=== PATIENT | female | born 1980 | race Caucasian/White ===

== ENCOUNTER → 2016-08-29 | Outpatient (CLI) | payer OTHER ==
[~2016-08-29] MED LIST: CYAN10005 PO; FERR1TAB61; MELATAB2 PO; MRC50 PO; MULT-506 PO; PARO1TAB27 PO; PNT500 PO; PRT/20 PO; RANI150T3 PO
[2016-08-29 08:50] LABS: HEMATOCRIT 40.7 % (37-47); MEAN CORPUSCULAR HEMOGLOBIN 35.6 pg (25-34); MEAN CORPUSCULAR HGB CONC 34.9 g/dl (32-36); MEAN PLATELET VOLUME 10.2 fL (7.4-10.4); PLATELET COUNT 282 K/uL (130-400); RED BLOOD COUNT 3.99 M/uL (4.2-5.4); WHITE BLOOD COUNT 5.47 K/uL (4.8-10.8)
[2016-08-29 09:15] LABS: ALT/SGPT 50 U/L (12-78); BLOOD UREA NITROGEN 7 mg/dl (7-18); BUN/CREATININE RATIO 9.9 (10-20); CARBON DIOXIDE 25 mmol/L (21-32); CHLORIDE 107 mmol/L (98-107); CHOLESTEROL 241 mg/dl (0-200); CREATININE 0.69 mg/dl (0.60-1.20); GLUCOSE 86 mg/dl (70-99); POTASSIUM 3.9 mmol/L (3.5-5.1); SODIUM 140 mmol/L (136-145); TRIGLYCERIDES 155 mg/dl (0-150); VERY LOW DENSITY LIPOPROT CALC 31 mg/dl
[2016-08-29 09:17] LABS: ALB/GLOB RATIO 0.9 (0.9-2); ALKALINE PHOSPHATASE 74 U/L (45-117); AST/SGOT 37 U/L (15-37); CALCIUM 8.8 mg/dl (8.5-10.1); CHOLESTEROL/HDL RATIO 3.2; HDL CHOLESTEROL 76 mg/dl; LDL CHOLESTEROL CALCULATED 134 mg/dl
== END | disposition home or self-care (01) ==
LOC: C.LAB 07:55
PROVIDERS: ATTEND Internal Medicine
DX: Z00.00 Encounter for general adult medical examination without abnormal findings (principal)

== ENCOUNTER → 2017-05-05 | Outpatient (CLI) | payer OTHER ==
[~2017-05-05] MED LIST changes: -FERR1TAB61
--- NOTE | 2017-05-05 14:44 | DIAGNOSTIC IMAGING REPORT ---
L HAND MIN 3 VIEWS ROUTINE CLINICAL HISTORY: Bilateral hand pain. Edema. COMPARISON: None FINDINGS: Alignment of the left hand is anatomic. The joint spaces are preserved. No erosions are identified. There is no fracture or suspicious lesion. IMPRESSION: 1. Unremarkable left hand radiographs. 2. No radiographic evidence of an erosive/inflammatory arthropathy. Electronically signed by: Bg Hanna M.D. 05/05/2017 2:43 PM Dictated Date/Time: 05/05/2017 2:42 PM
--- NOTE | 2017-05-05 14:44 | DIAGNOSTIC IMAGING REPORT ---
RIGHT HAND 3 VIEWS CLINICAL HISTORY: Right hand edema. Hand pain. FINDINGS: 3 views of the right hand are obtained. No prior studies are available for comparison at the time of dictation. The skeletal structures are well mineralized. No fracture is seen. The joint spaces of the hand are well-maintained. No erosive disease is identified. The overlying soft tissues are within normal limits. IMPRESSION: No acute bony abnormality is identified in the right hand. Electronically signed by: Tyrone Roberts M.D. 05/05/2017 2:43 PM Dictated Date/Time: 05/05/2017 2:42 PM
[2017-05-07 13:45] LABS: ANA SCREEN TC 249X NEGATIVE (NEGATIVE)
== END | disposition home or self-care (01) ==
LOC: C.RAD1850 14:22
PROVIDERS: ATTEND Internal Medicine
DX: K50.819 Crohn's disease of both small and large intestine with unspecified complications (principal); R60.0 Localized edema; M79.641 Pain in right hand

== ENCOUNTER → 2017-05-18 | Outpatient (CLI) | payer OTHER | END | disposition home or self-care (01) | LOC: C.MAMM 07:54 | PROVIDERS: ATTEND Internal Medicine | DX: K50.819 Crohn's disease of both small and large intestine with unspecified complications (principal); M85.89 Other specified disorders of bone density and structure, multiple sites ==

== ENCOUNTER → 2017-05-24 | Outpatient (CLI) | payer OTHER ==
--- NOTE | 2017-05-24 13:44 | DIAGNOSTIC IMAGING REPORT ---
WHOLE-BODY NUCLEAR BONE SCAN CLINICAL HISTORY: Joint pain. Hand pain. COMPARISON STUDY: Radiographs of the hands dictated 05/05/2017. TECHNIQUE: Three hours following the IV administration of 25.7 mCi of technetium 99m MDP, whole body nuclear bone scan was performed in the anterior and posterior projections. Additional views of the hands are obtained. FINDINGS: There is no abnormal osseous tracer deposition identified typical in appearance for bony metastatic disease. Typically degenerative uptake is identified in the shoulders, hips, and ankles. No abnormal tracer deposition is identified in the hands. There is expected excreted activity within the renal collecting system and bladder. IMPRESSION: No significant abnormality. Electronically signed by: Tyrone Roberts M.D. 05/24/2017 1:43 PM Dictated Date/Time: 05/24/2017 1:41 PM
== END | disposition home or self-care (01) ==
LOC: C.NUCL 09:39
PROVIDERS: ATTEND Internal Medicine Rheumatology
DX: M06.4 Inflammatory polyarthropathy (principal); M25.549 Pain in joints of unspecified hand; R60.0 Localized edema

== ENCOUNTER → 2017-05-31 | Outpatient (CLI) | payer OTHER ==
[2017-05-31 15:01] LABS: TRANSFERRIN 323 mg/dl (200-360)
[2017-06-05 04:27] LABS: ANA SCREEN TC 249X NEGATIVE (NEGATIVE); ANTI-SS-A <1.0 NEG AI (<1.0 NEG); ANTI-SS-B <1.0 NEG AI (<1.0 NEG); ANTICARDIOLIPID AB IGA <11 APL (< = 11); COMPLEMENT C3 TC 44859W 148 MG/DL (90-180); COMPLEMENT C4 TC 44982E 23 MG/DL (16-47); MICROSOMAL AB <1 IU/ML (<9); PARVOVIRUS IgM INDEX 0.3 (<0.9)
== END | disposition home or self-care (01) ==
LOC: C.LAB1850 11:39
PROVIDERS: ATTEND Internal Medicine Rheumatology
DX: M06.4 Inflammatory polyarthropathy (principal)

== ENCOUNTER → 2017-06-18 | Outpatient (CLI) | payer OTHER | END | disposition home or self-care (01) | LOC: C.PAPS 11:04 | PROVIDERS: ATTEND Physician Assistant | DX: Z01.419 Encounter for gynecological examination (general) (routine) without abnormal findings (principal) ==